=== PATIENT | female | born 1965 | race Asian ===

== ENCOUNTER 2017-06-26 08:39 | Emergency (ER) | payer MEDICAID, OTHER ==
--- NOTE | 2017-06-26 09:09 | ED Physician Documentation ---
PD HPI TRUNK INJURY - Stated complaint Stated Complaint: RT SIDE PX - Chief complaint Chief Complaint: Abd Pain - History obtained from History obtained from: Patient - History of Present Illness Location: Right chest Type of injury: Fall Timing - onset: Yesterday Quality: Pain Worsened by: Moving, Palpating, Other (Deep inspiration.) Associated symtptoms: No: Weakness, Numbness, Syncope Where injury occured: Home Similar symptoms before: Has not had sx before - Additional information Additional information: The patient is a 52-year-old female who presents with right-sided chest pain that started yesterday after she fell while cleaning her bathtub at home. She impacted her right lower chest wall on the edge of the tub. Her pain is worse with deep inspiration or with movement of her right upper extremity. She denies cough, abdominal pain, nausea or vomiting. She denies history of similar symptoms in the past, and denies any other current injuries. Review of Systems Constitutional: denies: Fever Ears: denies: Tinnitus/ringing Nose: denies: Congestion Cardiac: reports: Chest pain / pressure. 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 - Social History Does the pt smoke?: No Smoking Status: Never smoker Does the pt drink ETOH?: Yes - POLST Patient has POLST: No PD ED PE NORMAL - Vitals Vital signs reviewed: Yes (Initially hypertensive.) - General General: Alert and oriented X 3, Well developed/nourished - HEENT HEENT: Atraumatic, EOMI, Pharynx benign - Neck Neck: No bony TTP, No JVD - Cardiac Cardiac: RRR, No murmur - Respiratory Respiratory: No respiratory distress, Clear bilaterally, Other (Tenderness to palpation of the right lower chest wall, without ecchymosis or abrasions.) - Abdomen Abdomen: Soft, Non tender - Back Back: No CVA TTP, No spinal TTP - Derm Derm: No rash - Extremities Extremities: No tenderness to palpate, No edema, No calf tenderness / cord - Neuro Neuro: Alert and oriented X 3, No motor deficit, Normal speech Results - Vitals Vitals: Oxygen O2 Source Room air - EKG (time done) 08:47 Rate: Rate (enter#) (71) Rhythm: NSR [place]: Normal Intervals: Normal [place] Ischemia: Other (RSR" in V2, consistent with RVH.) Compare to prior EKG: Old EKG unavailable Computer interpretation: Agree with computer - Rads (name of study) Chest with right ribs Radiology: Prelim report reviewed, EMP read contemporaneously, See rad report ( Negative chest and right rib radiography.) PD MEDICAL DECISION MAKING - ED course Complexity details: reviewed results, re-evaluated patient, considered differential, d/w patient, d/w family ED course: The patient's presentation is most consistent with contusion to the right lower chest wall secondary to falling against the edge of the bathtub. Chest x-ray with right rib detail reveals no radiographic evidence of rib fracture or pulmonary contusion. I discussed with her the expected course of injury, symptomatic treatment and outpatient follow-up, as well as potentially worrisome signs or symptoms that should prompt reevaluation in the emergency department. She is being discharged with prescription for Vicodin, 15 tablets. Departure - Departure Disposition: 01 Home, Self Care Clinical Impression: Chest wall contusion Qualifiers: Encounter type: initial encounter Laterality: right Qualified Code(s): S20.211A - Contusion of right front wall of thorax, initial encounter Condition: Stable Instructions: ED Contusion Chest Wall Follow-Up: MELVIN Baer [Provider Group] Prescriptions: HYDROcod/ACETAM 5/325 [Vicodin 5/325] 1 - 2 ea PO Q6H PRN #15 tablet PRN Reason: Pain Comments: You can use ibuprofen, up to 800 mg 3 times daily for its anti-inflammatory effect. You can use Vicodin as prescribed if needed for pain. Let pain be your guide to activity level. Follow up with your primary physician within 2 weeks if not markedly improved. Return to the emergency department if you develop increasing difficulty breathing, or otherwise worsening symptoms. Discharge Date/Time: 06/26/17 10:28
--- NOTE | 2017-06-26 09:55 | XRAY Preliminary Report ---
Exam: XR RIBS W/PA CHEST RT IMPRESSION: Negative chest and right rib radiography. [facility] SITE ID: [id number]
--- NOTE | 2017-06-26 09:57 | XRAY Report ---
EXAM: RIGHT RIB RADIOGRAPHY EXAM DATE: 06/26/2017 09:27 AM. CLINICAL HISTORY: Right lower chest wall pain after fall against tub. COMPARISON: None. TECHNIQUE: 1 view of the chest and 2 views of the ribs. FINDINGS: Bones: no fracture or bone lesion. Lungs: No focal opacities. No pneumothorax. No pleural effusions. Mediastinum: Heart and mediastinal contours are unremarkable. IMPRESSION: Negative chest and right rib radiography. [facility] Referring Provider Line: [phone] SITE ID: [id number]
[2017-06-26 10:27] VITALS: BP 135/89
== END 2017-06-26 10:28 | disposition home or self-care (01) ==
LOC: ED 08:39
DX: S20.211A Contusion of right front wall of thorax, initial encounter (principal); W19.XXXA Unspecified fall, initial encounter; Y93.E9 Activity, other interior property and clothing maintenance; Y92.002 Bathroom of unspecified non-institutional (private) residence as the place of occurrence of the external cause; E03.9 Hypothyroidism, unspecified
CPT/HCPCS: 80053; 83690; 85025; 93005; 99283; 99284

== ENCOUNTER 2021-10-04 12:18 | Outpatient (CLI) | payer OTHER ==
--- NOTE | 2021-10-04 13:45 | MRI Report ---
PROCEDURE: Knee LT W/O INDICATIONS: KNEE PAIN TECHNIQUE: Noncontrast sagittal PD fast spin echo and T2 fast spin echo with fat saturation, sagittal 3-D gradie nt sequence with fat saturation; coronal T1 spin echo and PD fast spin echo with fat saturation, and axial PD fast spin echo with fat saturation through the knee. COMPARISON: None. Findings: Medial meniscus: No surface communication/tear. Deficiency of the anterior horn, which may reflect pr ior meniscectomy. Lateral meniscus: No surface communication/tear. LIGAMENTS/TENDONS: Patellar tendon: Intact. Distal quadriceps tendon: Intact. Hoffa's fat pad: No evidence of fibrosis or mass. PCL: Intact. ACL: Intact. Lateral collateral ligament complex: No significant abnormality. Posterolateral corner: T2 hyperintense signal about the popliteus musculotendinous junction, which ma y reflect strain injury. Medial collateral ligament: Periligamentous edema, compatible grade 1/2 injury. A 1.5 x 1.7 x 0.6 cm T2 hyperintense lesion is seen adjacent to the MCL, which may reflect a ganglion. MARROW: Subchondral T2 hyperintense foci are seen, measuring up to 5.6 mm, compatible with fibrocyst ic change. Faint T2 hyperintense signal is seen within the inner femoral condyle and superior to the intercondyl ar region, likely reflecting contusion. CARTILAGE: Deficiency of the medial compartment hyaline cartilage overlying the medial femoral condyl e. 7 mm defect in the hyaline cartilage overlying the medial patella facet. Thinning and signal heter ogeneity of the lateral compartment hyaline cartilage. Muscles: No significant edema or atrophy. Joint effusion/Enriquez's cyst: Moderate joint effusion. No substantial Enriquez's cyst. Subcutaneous soft tissues: Prepatellar soft tissue edema. A 0.7 x 1.3 x 1 cm T2 hyperintense lesion i s seen posterior to the medial tibial plateau with septations, likely reflecting a ganglion. IMPRESSION: 1. Deficiency of the anterior horn, medial meniscus, which may reflect prior meniscectomy. 2. Grade 1/2 MCL injury. 3. Edema at the popliteus musculotendinous junction, which may reflect strain injury. 4. Faint edematous signal in the distal femur as detailed above, likely reflecting contusion. 5. Tricompartment degenerative change of the hyaline cartilage as detailed above. 6. Moderate joint effusion. 7. 2 cystic appearing lesions with septations adjacent to the MCL and medial tibial plateau, which ma y reflect ganglions. Reviewed by: Andrew Garcia MD on 10/04/2021 1:43 PM PST Approved by: Andrew Garcia MD on 10/04/2021 1:43 PM PST Station ID: [id number]
== END 2021-10-04 12:19 | disposition home or self-care (01) ==
LOC: DI 12:18
PROVIDERS: ATTEND Student in an Organized Health Care Education/Training Program
DX: M17.12 Unilateral primary osteoarthritis, left knee (principal); M25.462 Effusion, left knee; M25.862 Other specified joint disorders, left knee; R60.0 Localized edema

== ENCOUNTER 2022-02-19 09:29 | Outpatient (CLI) | payer OTHER ==
--- NOTE | 2022-02-19 16:56 | XRAY Report ---
PROCEDURE: Knee 3 View LT INDICATIONS: KNEE PX TECHNIQUE: 3 views of the left knee(s) were acquired. COMPARISON: X-ray left knee, 4 views, 05/22/2010 21. FINDINGS: Bones: No fractures or dislocations. No suspicious bony lesions. Moderate degenerative joint disea se bilaterally. Soft tissues: Small left joint effusion. No suspicious soft tissue calcifications. IMPRESSION: 1. Moderate degenerative joint disease bilaterally. 2. Small left knee joint effusion. Reviewed by: Kevin Duvall MD on 02/19/2022 4:55 PM PDT Approved by: Kevin Duvall MD on 02/19/2022 4:55 PM PDT Station ID: [id number]
== END 2022-02-19 23:59 | disposition home or self-care (01) ==
LOC: DI.WOS 09:29
PROVIDERS: ATTEND Physician Assistant Surgical
DX: M17.0 Bilateral primary osteoarthritis of knee (principal); M25.462 Effusion, left knee